=== PATIENT | male | born 1995 | race African-American/Black ===

== ENCOUNTER 2018-02-16 09:28 | Emergency (ER) | payer OTHER, MEDICAID ==
[~2018-02-16] VITALS: Ht 167.6 cm; Wt 114.0 kg
[2018-02-16 12:00] VITALS: BP 124/80
== END 2018-02-16 12:07 | disposition home or self-care (01) ==
LOC: ER 10:17
DX: K40.90 Unilateral inguinal hernia, without obstruction or gangrene, not specified as recurrent (principal); F17.200 Nicotine dependence, unspecified, uncomplicated
CPT/HCPCS: 76870; 93976; 99284; Z7610

== ENCOUNTER 2018-02-17 19:01 | Emergency (ER) | payer OTHER, MEDICAID ==
[~2018-02-17] VITALS: Ht 162.6 cm; Wt 115.8 kg
[2018-02-17 19:29] LABS: BASOPHILS % 0.4 % (0.0-2.0); EOSINOPHILS % 2.3 % (0.0-5.0); HEMATOCRIT. 43.7 % (42.0-52.0); HEMOGLOBIN. 14.3 g/dL (14.0-18.0); LYMPHOCYTES % 28.5 % (20.0-50.0); MEAN CORPUSCULAR HEMOGLOBIN 25.5 pg (28.0-32.0); MEAN CORPUSCULAR VOLUME 77.8 fL (80.0-94.0); MEAN PLATELET VOLUME 8.1 fl (7.4-10.4); MONOCYTES % 11.5 % (2.0-8.0); NEUTROPHILS % 57.3 % (40.0-76.0); PLATELET 277 x1000/uL (130-400); RED BLOOD CELL COUNT 5.61 mill/uL (4.7-6.1); RED CELL DISTRIBUTION WIDTH 14.2 % (11.6-14.6)
[2018-02-17 19:33] LABS: CHLORIDE 102 mEq/L (98-107)
== END 2018-02-17 22:00 | disposition left against medical advice (07) ==
LOC: ER 19:01
DX: N50.812 Left testicular pain (principal); K40.90 Unilateral inguinal hernia, without obstruction or gangrene, not specified as recurrent
CPT/HCPCS: 36415; 80048; 85025; 99281